=== PATIENT | male | born 1990 | race Caucasian/White ===

== ENCOUNTER → 2017-01-09 | Outpatient (CLI) | payer OTHER ==
--- NOTE | 2017-01-10 14:22 | CPEEG ---
[f rep st] ELECTROENCEPHALOGRAM 4-HOUR VIDEO EEG DATE OF STUDY: 01/09/2017 INTERPRETATION: This EEG is abnormal due to the presence of potentially epileptogenic abnormalities . These findings would be consistent with a seizure disorder. During the video EEG monitoring [facility], the patient did not have any clinical events. REPORT: This 4-hour video EEG contains 9 Hz alpha activity to the posterior head regions. The back ground activity was normal and symmetric. There was no generalized or focal slowing. The primary f eature of this recording is a presence of irregular generalized spike and wave discharges. These di scharges were composed of generalized spike and wave waveforms that were disorganized at times. The y typically ranged between 3 and 4 Hz in frequency. They lasted between 1 and 3 seconds on average. Often, the discharges had maximal amplitudes of the spike component over the right hemisphere. Ho wever, there were no clear-cut independent right focal discharges. This pattern raises the possibil ity of a right frontal focus with secondary bilateral synchrony versus a generalized epilepsy. Ther e was no specific activation with photic stimulation. With hyperventilation, the patient had activa tion of this atypical spike and wave discharge. The patient became drowsy and fell into sleep durin g the recording. During drowsiness and sleep, there was continued activation of these generalized s pike and wave discharges as described above. There were no clinical events recorded during the vide o EEG monitoring session. /[id number]/[id number]
== END ==
LOC: FCPNEURO 09:12
PROVIDERS: ATTEND Physician Assistant Medical
DX: G40.909 Epilepsy, unspecified, not intractable, without status epilepticus (principal)